=== PATIENT | male | born 1965 | race Caucasian/White ===

== ENCOUNTER 2019-02-26 18:14 | Emergency (ER) | payer BC ==
[2019-02-26] MEDS ORDERED: XYLOCAINE 1% HCL 20 ML MDV IJ ONE (19:14)
[2019-02-26] MEDS ORDERED: Adacel Vial IM ONE ×2 (19:14→19:46)
[2019-02-26] MEDS ORDERED: XYLOCAINE 1% HCL 20 ML MDV ONE (19:17)
--- NOTE | 2019-02-26 19:54 | ERPHSYRPT ---
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 I know there is some in there I just could not get it." Triage Nursing Assessment: Pt alert and oriented x 3, skin pwd. PT ambulates with an upright steady gait, able to speak in clear full sentences. PT has a small laceration noted to top of head, bleeding controlled. 1 cm X 0.2 Physician History: Pt states, he was working at home with a [employer], a twig stuck his head, causing a puncture wound on his scalp. He suspects some wood might have stuck under the skin. He denies other injury, severe headaches, nausea, other injury or complaints. He is not sure about his tetanus status. Occurred: hours ago (2.5) Severity: mild Head Injury Location: frontal Method of Injury: stab Loss of Consciousness: no loss of consciousness Associated Symptoms: denies symptoms Allergies/Adverse Reactions: No Known Drug Allergies Allergy (Unverified 02/26/19 18:23) Hx Tetanus, Diphtheria Vaccination/Date Given: No Hx Influenza Vaccination/Date Given: No Hx Pneumococcal Vaccination/Date Given: No Immunizations Up to Date: Yes - Review of Systems Constitutional: No Symptoms Eyes: No Symptoms Ears, Nose, & Throat: No Symptoms Respiratory: No Symptoms Cardiac: No Symptoms Abdominal/Gastrointestinal: No Symptoms Musculoskeletal: No Symptoms Skin: Other (syab wound on frontal scalp) Neurological: No Symptoms All Other Systems: Reviewed and Negative - Past Medical History Pertinent Past Medical History: No - Past Surgical History Past Surgical History: No - Social History Smoking Status: Current every day smoker How long have you smoked: years Exposure to second hand smoke: Yes Drug Use: none Patient Lives Alone: Yes - Nursing Vital Signs Nursing Vital Signs: Initial Vital Signs Temperature 98.0 F 02/26/19 18:18 Pulse Rate 92 H 02/26/19 18:18 Respiratory Rate 16 02/26/19 18:18 Blood Pressure 142/84 02/26/19 18:18 O2 Sat by Pulse Oximetry 99 02/26/19 18:18 Pain Scale Pain Intensity 0 - [place]anan Coma Score Best Eye Response (Valerio): (4) open spontaneously Best Verbal Response (Valerio): (5) oriented Best Motor Response (Valerio): (6) obeys commands Valerio Total: 15 - Physical Exam General Appearance: no apparent distress Head Injury: lacerations (4-5 mm irregular stb wound on the left frontal scalp, at the border of the hairy scalp, no hematoma or bleeding. 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 Exam: normal hearing, normal speech Motor/Sensory Exam: no motor deficit Skin Exam: normal color, warm, dry SpO2 Interpretation: normal SpO2: 99 O2 Delivery: Room Air Procedures - Laceration/Wound Repair Left Frontal Wound Location: Left, forehead Wound Length (cm): 0.5 Wound's Depth, Shape: irregular Wound Explored: 3 small morsels ( 2-3 mm) of tree bark removed Irrigated: Yes Hibiclens Prep: No Anesthesia: local, 1% Lidocaine Volume Anesthetic (ccs): 4 Wound Debrided: minimal Wound Repaired With: sutures Suture Size/Type: 4-0, ethilon Number of Sutures: 1 Layer Closure?: No Sterile Dressing Applied?: Yes Splint Applied?: No - Course Nursing assessment & vital signs reviewed: Yes Ordered Tests: Active Orders 24 hr Category Date Time Status Prepare for Sutures STAT Care 02/26/19 19:14 Active Sutures STAT Care 02/26/19 19:15 Active Wound Care STAT Care 02/26/19 19:14 Active Medication Summary Discontinued Medications Generic Name Dose Route Start Last Admin Trade Name Freq PRN Reason Stop Dose Admin Diphtheria/Tetanus/Acell Pertussis 0.5 ml 02/26/19 19:14 Adacel Vial IM 02/26/19 19:15 .ONCE ONE Diphtheria/Tetanus/Acell Pertussis Confirm 02/26/19 19:46 Adacel Vial Administered 02/26/19 19:47 Dose 0.5 ml IM .STK-MED ONE Lidocaine HCl 5 ml 02/26/19 19:14 Xylocaine 1% Hcl 20 Ml Mdv IJ 02/26/19 19:15 STAT ONE Lidocaine HCl Confirm 02/26/19 19:17 Xylocaine 1% Hcl 20 Ml Mdv Administered 02/26/19 19:18 Dose 5 ml .ROUTE .STK-MED ONE - Progress Progress: unchanged Progress Note: 02/26/19 19:53 Pt is going to be discharged on PO Keflex 500 mg PO TID x 7 days, advised to clean wound daily with antiseptic solution, and change sterile gauze dressing, return if severe pain, redness, discharge, or fever> 101 F, removal of the suture after 7 days. Counseled pt/family regarding: diagnosis, need for follow-up - Departure Departure Disposition: Home Clinical Impression: Foreign body in skin Laceration of scalp Qualifiers: Encounter type: initial encounter Qualified Code(s): S01.01XA - Laceration without foreign body of scalp, initial encounter Condition: Stable Critical Care Time: No Referrals: DAYSI FRANCO MD [Primary Care Provider] - Instructions: Wound Care (DC), Laceration Repair With Stitches (DC) Additional Instructions: Keep wound clean, daily antiseptic cleansing and sterile gauze dressing changes , return if severe pain, swelling, redness, discharge or fever> 101 F, removal of the sutures after 7 days. Prescriptions: Cephalexin Mh 500 mg [Keflex 500 mg] 500 mg PO TID #28 capsule
[2019-02-26] MEDS ORDERED: KEFLEX 500 MG PO ONE (19:55)
[2019-02-26] MEDS ORDERED: KEFLEX 500 MG ONE (19:58)
[2019-02-26 20:06] VITALS: BP 126/67; PULSE 71; O2SAT 98
== END 2019-02-26 20:08 | disposition home or self-care (01) ==
LOC: ED 18:14
DX: S01.02XA Laceration with foreign body of scalp, initial encounter (principal); W22.8XXA Striking against or struck by other objects, initial encounter
CPT/HCPCS: 10120; 90471; 90715; 96372; 99284; A9270-GY